=== PATIENT | male | born 1960 | race Caucasian/White ===

== ENCOUNTER 2017-06-23 10:18 | Emergency (ER) | payer BC, MEDICAID ==
[2017-06-23 10:26] VITALS: BMI 39.5
[2017-06-23 10:27] VITALS: RESP 18
[2017-06-23] MEDS ORDERED: Sodium Chloride 0.9% 1,000 ML IV ONE (11:02)
--- NOTE | 2017-06-23 11:02 | C.PDOC ---
History Of Present Illness 57 yo male w/PMHx of NIDDM, non-complaint with medication, HTN, come in for evaluation of near syncope sx suddenly developed yesterday around 3 PM. 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 Pt sts, did not syncopized. Pt sts, "went to car, sat down and it passed". Pt reports, took his BP at home noted slight elevated, checked his sugar that was over 500. Today, pt denies headache, dizziness, visual changes, focal deficits, neck pain, CP, SOB, dyspnea, diaphoresis, palpitation, abd. pain , N/V/D, back apin, B/L weakness. Ambulate to Ed for evaluation, not in any apparent distress. Time Seen by Provider: 06/23/17 11:00 Chief Complaint (Nursing): Chest Pain History Per: Patient Onset/Duration Of Symptoms: Days Current Symptoms Are (Timing): Better Past Medical History Reviewed: Historical Data, Nursing Documentation, Vital Signs Vital Signs: Last Vital Signs Temp 98.2 F 06/23/17 12:34 Pulse 108 H 06/23/17 12:34 Resp 18 06/23/17 12:34 BP 142/74 06/23/17 12:34 Pulse Ox 99 06/23/17 13:18 - Medical History PMH: Diabetes, HTN Other PMH: obesity Surgical History: No Surg Hx Family History: States: No Known Family Hx - Social History Hx Tobacco Use: No Hx Alcohol Use: No Hx Substance Use: No - Immunization History Hx Tetanus Toxoid Vaccination: No Hx Influenza Vaccination: No Hx Pneumococcal Vaccination: No Review Of Systems Except As Marked, All Systems Reviewed And Found Negative. Constitutional: Negative for: Fever, Chills Eyes: Negative for: Vision Change ENT: Negative for: Throat Pain Cardiovascular: Positive for: Palpitations, Light Headedness. Negative for: Chest Pain, Edema Respiratory: Negative for: Cough, Shortness of Breath, Wheezing Musculoskeletal: Negative for: Neck Pain, Back Pain Skin: Negative for: Rash Neurological: Negative for: Weakness, Numbness, Altered Mental Status, Headache , Dizziness Physical Exam - Physical Exam Appears: Well, Non-toxic, No Acute Distress Skin: Normal Color, Warm, Dry, No Rash Head: Normacephalic Eye(s): bilateral: PERRL Nose: No Flaring, No Discharge Oral Mucosa: Moist, No Drooling Throat: No Erythema, No Drooling, Other (uvula midline, no edema.) Neck: Supple Cardiovascular: Rhythm Regular, No Friction Rub, No Murmur, No JVD, Other ((-) carotid bruits B/L) Respiratory: No Decreased Breath Sounds, No Accessory Muscle Use, No Stridor, No Wheezing Gastrointestinal/Abdominal: Soft, No Tenderness, No Distention, No Guarding Back: No CVA Tenderness Extremity: Normal ROM, No Pedal Edema, No Deformity, No Swelling Neurological/Psych: Oriented x3, Normal Speech ED Course And Treatment - Laboratory Results Result Diagrams: 06/23/17 11:24 06/23/17 11:24 Lab Interpretation: No Acute Changes ECG: Interpreted By Me, Viewed By Me (and Ed attending) ECG Interpretation: Normal Interpretation Of ECG: SR@120/min, NAD, no acute T wave or ST-T changes. O2 Sat by Pulse Oximetry: 99 - Radiology CXR: Interpreted by Me, Viewed By Me - Other Rad CXR X-Ray: Read By Radiologist Interpretation: IMPRESSION: No focal consolidation, significant pleural effusion, or definite pneumothorax identified. Progress Note: On re-evaluation, pt reports " feels better". Afebrile, hemodynamicaly stable. Non-toxic. ENT: no acute finidngs. neck: Supple, (-) carotid bruits, (-) JVD. Lungs: CTA B/L, BS wequal B/L. CVS: (+)S1S2, reg, (- ) murmurs. Abd: benign, (-) guarding, (-) rebound. back: (-) CVA tenderness. Blood work reviewa nd appears without acute abnoramlities. AG=11. Ketones (-) . EKG, CXR- no acute abnormalities. Pt has clinical findings c/w near-syncope , NIDDM non-complaint with medication. case discussed with ED attending and discharge with outpt f/u recommend. results review and discussed with ptr. ref. to f/u with PMD , card. in 1-2 days for re-eval. return to ED if any worsening or new changes. Disposition Counseled Patient/Family Regarding: Studies Performed, Diagnosis, Need For Followup, Rx Given - Disposition Referrals: Christine Carrillo MD [Medical Doctor] - Saul Philippe DO [Doctor Osteopathy] - Disposition: HOME/ ROUTINE Disposition Time: 12:53 Condition: STABLE Additional Instructions: Encourage fluids Take medication as prescribed Follow up with PMD in 1-2 days for re-evaluation. Return to ED if any worsening or new changes. Prescriptions: Glimepiride [Amaryl] 1 mg PO DAILY #20 tab metFORMIN [glucOPHAGE] 500 mg PO BID #30 tab Ramipril [Altace] 2.5 mg PO DAILY #20 cap Instructions: Near Syncope (ED), Diabetic Hyperglycemia (ED) Forms: [employer] (Vietnamese) - Clinical Impression Clinical Impression: Near syncope, Hyperglycemia due to type 2 diabetes mellitus - PA / RESIDENTIAL INSTRUCTOR / Resident Statement / has reviewed & agrees with the documentation as recorded.
[2017-06-23] MEDS ORDERED: Sodium Chloride 0.9% 1,000 ML ONE (11:24)
[2017-06-23 11:31] LABS: BASO % 0.5 % (0.0-2.0); EOS # 0.2 K/uL (0.0-0.7); EOS % 2.6 % (0.0-4.0); HEMATOCRIT 49.9 % (35.0-51.0); LYMPH # 1.5 K/uL (1.0-4.3); LYMPH % 21.2 % (20.0-40.0); MEAN CELL VOLUME 90.5 fL (80.0-94.0); MEAN CORPUSCULAR HEMOGLOBIN 31.1 pg (27.0-31.0); MEAN CORPUSCULAR HGB CONC 34.3 g/dL (33.0-37.0); MEAN PLATELET VOLUME 10.1 fL (7.2-11.7); MONO # 0.5 K/uL (0.0-0.8); MONO % 6.2 % (0.0-10.0); NRBC % 0.1 % (0.0-2.0); RED CELL DISTRIBUTION WIDTH 13.1 % (11.5-14.5); WHITE BLOOD COUNT 7.3 K/uL (4.8-10.8)
[2017-06-23 11:46] LABS: CHLORIDE 94 mmol/L (98-107); SODIUM 133 mmol/L (132-148)
[2017-06-23 11:48] LABS: BILIRUBIN,TOTAL 0.9 mg/dL (0.2-1.3); GFR AFRICAN-AMERICAN > 60
[2017-06-23 11:49] LABS: ALB/GLOB RATIO 1.1 (1.0-2.1); ALKALINE PHOSPHATASE 86 U/L (38-126); ALT/SGPT 73 U/L (21-72); AST/SGOT 51 U/L (17-59); BLOOD UREA NITROGEN 13 mg/dL (9-20); CALCIUM 9.3 mg/dl (8.6-10.4); CARBON DIOXIDE 27 mmol/L (22-30); GLUCOSE,RANDOM 318 mg/dL (75-110); TOTAL PROTEIN 8.5 g/dL (6.3-8.3)
[2017-06-23 12:12] LABS: RBC URINE < 1 /hpf (0-3); URINE BILIRUBIN NEGATIVE (NEGATIVE); URINE BLOOD NEGATIVE (NEGATIVE); URINE COLOR Yellow (YELLOW); URINE GLUCOSE (UA) 3+ mg/dL (Normal); URINE KETONE TRACE mg/dL (NEGATIVE); URINE LEUKOCYTE ESTERASE NEG Leu/uL (Negative); URINE PROTEIN NEGATIVE (NEGATIVE); URINE UROBILINOGEN NORMAL mg/dL (0.2-1.0); WBC URINE 1 /hpf (0-5)
--- NOTE | 2017-06-23 12:33 | RAD ---
HISTORY: SOB COMPARISON: None available. TECHNIQUE: Chest PA and lateral FINDINGS: Examination limited by habitus and hypoinflation. LUNGS: No focal consolidation. Please note that chest x-ray has limited sensitivity for the detection of pulmonary masses. PLEURA: No significant pleural effusion identified. No definite pneumothorax . CARDIOVASCULAR: Heart size appears within normal limits. Atherosclerotic calcifications of the aortic knob. OSSEOUS STRUCTURES: Degenerative changes of the spine. VISUALIZED UPPER ABDOMEN: Unremarkable. OTHER FINDINGS: None. IMPRESSION: No focal consolidation, significant pleural effusion, or definite pneumothorax identified.
[2017-06-23 12:34] VITALS: BP 142/74; PULSE 108; TEMP 98.2
[2017-06-23 12:58] VITALS: O2SAT 99
== END 2017-06-23 13:29 | disposition home or self-care (01) ==
LOC: C.ER 10:18
DX: R55 Syncope and collapse (principal); E11.65 Type 2 diabetes mellitus with hyperglycemia
CPT/HCPCS: 71020; 80053; 81001; 82009; 84484; 85025; 85610; 85730; 87040; 96360; 99285; J7040

== ENCOUNTER 2018-07-26 11:16 | Emergency (ER) | payer BC ==
[2018-07-26 11:16] VITALS: BMI 39.5
[2018-07-26] MEDS ORDERED: Sodium Chloride 0.9% 1,000 ML IV ONE (12:33)
[2018-07-26] MEDS ORDERED: Sodium Chloride 0.9% 1,000 ML ONE (12:48)
[2018-07-26 13:03] LABS: BASO % 0.5 % (0.0-2.0); EOS # 0.2 K/uL (0.0-0.7); EOS % 2.8 % (0.0-4.0); HEMOGLOBIN 15.9 g/dL (12.0-18.0); LYMPH # 1.3 K/uL (1.0-4.3); LYMPH % 17.8 % (20.0-40.0); MEAN CELL VOLUME 90.2 fL (80.0-94.0); MEAN CORPUSCULAR HGB CONC 34.3 g/dL (33.0-37.0); MEAN PLATELET VOLUME 9.7 fL (7.2-11.7); MONO # 0.6 K/uL (0.0-0.8); MONO % 8.6 % (0.0-10.0); NEUT # 5.1 K/uL (1.8-7.0); NEUT % 70.3 % (50.0-75.0); RBC 5.15 Mil/uL (4.40-5.90); RED CELL DISTRIBUTION WIDTH 13.4 % (11.5-14.5); WHITE BLOOD COUNT 7.2 K/uL (4.8-10.8)
--- NOTE | 2018-07-26 13:04 | C.PDOC ---
History Of Present Illness 58-year-old male, PMHx includes diabetes (non-compliant with medication), presents to the emergency department with complaints of abdominal pain, distention and bloating for the past week. Patient denies vomiting, or any other associated symptoms. No other complaints at this time. Time Seen by Provider: 07/26/18 12:27 Chief Complaint (Nursing): Abdominal Pain History Per: Patient History/Exam Limitations: no limitations Current Symptoms Are (Timing): Still Present Severity: Moderate Past Medical History Reviewed: Historical Data, Nursing Documentation, Vital Signs Vital Signs: Last Vital Signs Temp 98.6 F 07/26/18 11:54 Pulse 109 H 07/26/18 11:54 Resp 18 07/26/18 11:54 BP 144/90 07/26/18 11:54 Pulse Ox 98 07/26/18 11:54 - Medical History PMH: Diabetes, Diverticulitis, Gastritis, HTN Family History: States: No Known Family Hx - Social History Hx Tobacco Use: No Hx Alcohol Use: No Hx Substance Use: No - Immunization History Hx Tetanus Toxoid Vaccination: No Hx Influenza Vaccination: No Hx Pneumococcal Vaccination: No Review Of Systems Constitutional: Negative for: Fever, Chills Cardiovascular: Negative for: Chest Pain Respiratory: Negative for: Shortness of Breath Gastrointestinal: Positive for: Abdominal Pain (distention, bloating). Negative for: Vomiting Neurological: Negative for: Weakness, Numbness Physical Exam - Physical Exam Appears: Non-toxic, No Acute Distress, Other (morbidly obese) Skin: Warm, Dry, No Rash Head: Atraumatic Eye(s): bilateral: Normal Inspection Nose: Normal Oral Mucosa: Moist Lips: Normal Appearing Neck: Normal ROM Cardiovascular: Rhythm Regular, No Murmur Respiratory: Normal Breath Sounds Gastrointestinal/Abdominal: Soft, No Tenderness, No Guarding, No Rebound Extremity: Normal ROM, No Deformity Neurological/Psych: Oriented x3, Normal Speech ED Course And Treatment - Laboratory Results Result Diagrams: 07/26/18 12:57 07/26/18 12:57 O2 Sat by Pulse Oximetry: 98 Pulse Ox Interpretation: Normal (RA) Medical Decision Making Medical Decision Making: abd pain suspect gastristis colitis obstruction - labs imagin gpending labs neg. ct neg for acute pathology. pain improved. adivse outpt fu. Disposition - Disposition Referrals: [facility] [Outside] [facility] [Outside] Prince Aragon MD [Staff Provider] - Disposition: HOME/ ROUTINE Disposition Time: 16:00 Condition: STABLE Additional Instructions: return to er with worsening symptoms or concerns Prescriptions: Famotidine [Pepcid] 20 mg PO DAILY #20 tab RX: Glimepiride [amaRYL] 2 mg PO DAILY #7 tab RX: metFORMIN [glucOPHAGE] 500 mg PO BID #14 tab RX: Ramipril [Altace] 2.5 mg PO DAILY #7 capsule Instructions: Acute Abdomen (Belly Pain) Forms: [employer] (Portuguese) - Clinical Impression Clinical Impression: Abdominal pain - Scribe Statement The provider has reviewed the documentation as recorded by the Scribe (Evans Marie) Provider Attestation: All medical record entries made by the Scribe were at my direction and personally dictated by me. I have reviewed the chart and agree that the record accurately reflects my personal performance of the history, physical exam, medical decision making, and the department course for this patient. I have also personally directed, reviewed, and agree with the discharge instructions and disposition.
[2018-07-26 13:11] LABS: PROTHROMBIN TIME 11.1 SECONDS (9.7-12.2)
[2018-07-26 13:14] LABS: ALB/GLOB RATIO 1.2 (1.0-2.1); ALBUMIN 4.3 g/dL (3.5-5.0); ALT/SGPT 64 U/L (21-72); AST/SGOT 55 U/L (17-59); BLOOD UREA NITROGEN 10 mg/dL (9-20); CALCIUM 9.1 mg/dl (8.6-10.4); GFR NON-AFRICAN AMERICAN > 60; LIPASE 98 U/L (23-300)
[2018-07-26 13:44] LABS: SQUAMOUS EPITHIAL 2 /hpf (0-5); URINE BACTERIA RARE (<OCC); URINE BILIRUBIN NEGATIVE (NEGATIVE); URINE BLOOD NEGATIVE (NEGATIVE); URINE CLARITY Clear (Clear); URINE COLOR Yellow (YELLOW); URINE GLUCOSE (UA) 3+ mg/dL (Normal); URINE LEUKOCYTE ESTERASE 1+ Leu/uL (Negative); URINE PROTEIN NEGATIVE (NEGATIVE); URINE UROBILINOGEN NORMAL mg/dL (0.2-1.0)
[2018-07-26 14:04] VITALS: RESP 16
[2018-07-26] MEDS ORDERED: Iodixanol 320 MG/ML 100 ML BOTTLE IV ONE (14:14)
--- NOTE | 2018-07-26 15:23 | CT ---
Date of service: 07/26/2018 PROCEDURE: CT Abdomen and Pelvis with contrast HISTORY: upper abd pain/distention COMPARISON: Images from CT of the abdomen and pelvis without IV contrast performed 03/28/12 TECHNIQUE: Contrast dose: 100 mL Visipaque IV Radiation dose: Total exam DLP = 1205.04 mGy-cm. This CT exam was performed using one or more of the following dose reduction techniques: Automated exposure control, adjustment of the mA and/or kV according to patient size, and/or use of iterative reconstruction technique. FINDINGS: LOWER THORAX: No visible consolidation, pleural effusion, or pneumothorax. LIVER: Hepatomegaly. Hypoattenuation of the liver compatible with hepatic steatosis. GALLBLADDER AND BILE DUCTS: Unremarkable. PANCREAS: Fatty atrophy of the pancreas. SPLEEN: 16 mm probable splenule. Otherwise unremarkable. ADRENALS: Unremarkable. KIDNEYS AND URETERS: The kidneys enhance symmetrically. No hydronephrosis or obstructing calculus identified. 3 mm too small to characterize left renal hypodensity; statistically likely a cyst. VASCULATURE: No aortic aneurysm. No atherosclerotic calcification or mural plaque present. BOWEL: Stomach is nondistended. Lack of oral contrast limits evaluation for bowel pathology. Bowel loops appear within normal limits of caliber without evidence of obstruction. APPENDIX: The appendix appears within normal limits of caliber. No secondary signs of acute appendicitis. PERITONEUM: No significant free fluid. No definite free air. LYMPH NODES: No bulky adenopathy identified. BLADDER: Unremarkable. REPRODUCTIVE: Unremarkable. BONES: Degenerative changes of the spine. OTHER FINDINGS: None. IMPRESSION: Hepatomegaly. Hypoattenuation of the liver compatible with hepatic steatosis. Too small to characterize left renal hypodensity, statistically likely cyst.
[2018-07-26 16:10] VITALS: BP 125/79; PULSE 89; TEMP 98.2
[2018-07-26 17:51] VITALS: O2SAT 98
== END 2018-07-26 16:08 | disposition home or self-care (01) ==
LOC: C.ER 11:16
DX: R10.9 Unspecified abdominal pain (principal)
CPT/HCPCS: 74177; 80053; 81001; 83690; 85025; 85610; 85730; 96361; 96374; 96375; 99284; C9113; J2405; J7030; Q9967